=== PATIENT | female | born 1945 | race Caucasian/White ===

== ENCOUNTER 2024-01-10 05:58 | Inpatient (IN) | payer OTHER ==
[2024-01-09 09:02] VITALS: BMI 22.9
[2024-01-10] MEDS ORDERED: Vancomycin 1 GM VIAL ONE (06:23)
[2024-01-10] MEDS ORDERED: Thrombin 5000 UNITS/5 ML VIAL ONE (06:23)
[2024-01-10] MEDS ORDERED: Midazolam HCl 2 mg/2 ml Vial ONE (06:47)
[2024-01-10 06:53] LABS: Hematocrit 38.4 % (36.0-47.0); Mean Corpuscular HGB CONC 31.3 g/dL (32.0-36.0); Mean Platelet Volume 9.1 fL (7.4-10.4); Platelet Count 302 10x3/uL (130-400); RBC Distribution Width 17.2 % (11.5-14.5)
[2024-01-10] MEDS ORDERED: Sodium Chloride 0.9% 0 ML ONE (06:59)
[2024-01-10] MEDS ORDERED: CEFAZOLIN 2 GM VIAL ONE (06:59)
[2024-01-10 07:06] LABS: PTT 30.6 sec (22.9-36.1); Prothrombin Time 13.2 sec (12.0-14.7)
[2024-01-10 07:07] LABS: Anion Gap 15 mmol/L (10-20); BUN (Urea Nitrogen) 21 mg/dL (9.8-20.1); Calc. Creatinine Clearance 65 mL/min (70-130); Calcium 9.2 mg/dL (7.8-10.44); Carbon Dioxide 21 mmol/L (23-31); Chloride 108 mmol/L (98-107); Estimated GFR 73; Glucose 115 mg/dL (83-110); Sodium 140 mmol/L (136-145)
[2024-01-10] MEDS ORDERED: PROPOFOL 20 ML ONE (07:11)
[2024-01-10] MEDS ORDERED: Fentanyl 250 MCG/5 ML VIAL ONE ×2 (07:11→11:51)
[2024-01-10] MEDS ORDERED: MINERAL OIL/WHITE PETROLATUM 3.5 GM TUBE ONE (07:12)
[2024-01-10] MEDS ORDERED: Rocuronium Bromide 10 MG/ML (10ML VIAL) ONE (07:12)
[2024-01-10] MEDS ORDERED: Lidocaine 2% PF 5 ML VIAL ONE (07:12)
[2024-01-10] MEDS ORDERED: Dexamethasone 4 mg/ml Vial ONE (07:52)
[2024-01-10] MEDS ORDERED: Ondansetron PF 4 MG/2 ML Vial ONE (07:56)
[2024-01-10] MEDS ORDERED: Dexmedetomidine 200 MCG/2 ML VIAL ONE (07:57)
[2024-01-10] MEDS ORDERED: SUGAMMADEX SODIUM 200 MG/2 ML VIAL ONE (08:11)
[2024-01-10] MEDS ORDERED: ePHEDrine Sulfate 50 MG/10 ML VIAL ONE (09:07)
[2024-01-10] MEDS ORDERED: Albumin 5% 500 ML ONE (09:55)
[2024-01-10] MEDS ORDERED: PHENYLEPHRINE-NS 100 MCG/ML 10 ML SYRINGE ONE (09:56)
[2024-01-10] MEDS ORDERED: HYDROmorphone 2 MG/ML VIAL ONE ×2 (10:23→12:21)
[2024-01-10] MEDS ORDERED: Ondansetron PF 4 MG/2 ML Vial IVP PRN (11:32)
[2024-01-10] MEDS ORDERED: diphenhydrAMINE 25 MG CAP PO PRN (11:32)
[2024-01-10] MEDS ORDERED: Milk Of Magnesia 30 ML UDCUP PO PRN (11:32)
[2024-01-10] MEDS ORDERED: Benzocaine/Menthol 1 LOZ LOZ PO PRN (11:37)
[2024-01-10] MEDS: Morphine 2 MG/ML VIAL SLOW IVP PRN (14:21)
[2024-01-10] MEDS: CEFAZOLIN 2 GM in Sodium Chloride 0.9% 100 ML IVPB SCH (15:57)
[2024-01-10] MEDS: tiZANidine HCl 4 MG TAB PO PRN (15:57)
[2024-01-10] MEDS: HYDROcodone/Acetaminophen 7.5/325 mg Tablet PO PRN (16:49)
[2024-01-10] MEDS: Sodium Chloride 0.9% 1,000 ML IV SCH (20:03)
[2024-01-10] MEDS: Acetaminophen 325 MG TAB PO PRN (20:34)
[2024-01-10] MEDS: Lorazepam 1 MG TAB PO SCH (21:23)
[2024-01-11] MEDS: Acetaminophen/Codeine 30-300mg Tablet PO PRN ×2 (00:46→08:25)
[2024-01-11] MEDS ORDERED: Polyethylene Glycol 3350 17 GM Packet PO PRN (06:32)
[2024-01-11] MEDS: Mag-Al 1200 mg/1200 mg/30 ML UDCUP PO PRN (08:20)
[2024-01-11] MEDS: BuPROPion XL 150 MG ER.TAB PO SCH (08:25)
[2024-01-11] MEDS: Docusate 100 MG CAP PO SCH (08:25)
[2024-01-11] MEDS: Diazepam 5 MG TAB PO PRN ×2 (11:17→21:14)
[2024-01-11] MEDS: Ketorolac Tromethamine 30 MG (1 mL) VIAL IVP PRN (11:17)
[2024-01-12] MEDS: traMADol HCl 50 MG TAB PO PRN (11:35)
[2024-01-13 07:09] LABS: Anion Gap 14 mmol/L (10-20); BUN (Urea Nitrogen) 15 mg/dL (9.8-20.1); Calc. Creatinine Clearance 71 mL/min (70-130); Calcium 8.5 mg/dL (7.8-10.44); Carbon Dioxide 23 mmol/L (23-31); Chloride 103 mmol/L (98-107); Estimated GFR 81; Glucose 170 mg/dL (83-110); Potassium 3.8 mmol/L (3.5-5.1); Sodium 136 mmol/L (136-145)
[2024-01-13 07:14] LABS: #Basophils Less than 0.03 10x3/uL (0.0-0.2); %Basophils 0.2 % (0.0-1.0); %Eosinophils 1.6 % (0.0-10.0); %Lymphocytes 7.7 % (21.0-51.0); %Monocytes 8.6 % (0.0-10.0); %Neutrophils 81.5 % (42.0-75.0); Hematocrit 28.8 % (36.0-47.0); Mean Corpuscular HGB CONC 31.3 g/dL (32.0-36.0); Mean Corpuscular Hemoglobin 20.1 pg (27.0-31.0); Mean Corpuscular Volume 64.4 fL (78.0-98.0); Mean Platelet Volume 9.3 fL (7.4-10.4); Platelet Count 231 10x3/uL (130-400); RBC Distribution Width 16.1 % (11.5-14.5); Red Blood Cell (RBC) Count 4.47 mill/uL (4.20-5.40)
[2024-01-13 07:42] LABS: Bilirubin Negative (Negative); Blood, Urine 3+ (Negative); Clarity Turbid (Clear); Glucose, Urine (Dipstick) Normal (Negative); Ketone, Urine Negative (Negative); Leukocyte 25 Leu/uL (Negative); Nitrite Negative (Negative); Protein, Urine (Dipstick) 100 mg/dL (Neg-Trace); Specific Gravity, Urine 1.024 (1.002-1.036); Squamous Epithelial 0-3 HPF (0-3); Urobilinogen Normal mg/dL (Less than 2); pH, Urine 5.5 (5.0-9.0)
[2024-01-13 07:43] LABS: Bacteria/HPF 1+ HPF (None Seen)
[2024-01-13 08:08] LABS: Lymphocytes 8 % (21-51); Microcytosis SLIGHT = 6-15 cells HPF (0-5); Monocytes 1 % (0-10); Neutrophil 91 % (42-75); Ovalocytes SLIGHT = 2-5 cells HPF (0-1); Platelet Adequacy Comment Platelets Normal; Polychromasia SLIGHT = 2-3 cells HPF (0-2); Tear Drops SLIGHT = 2-5 cells HPF (0-1)
[2024-01-13] MEDS: Nitrofurantoin Monohyd/M-Cryst 100 MG CAP PO SCH (20:36)
[2024-01-14] MEDS: Diazepam 5 MG TAB PO SCH (08:55)
[2024-01-14] MEDS: Ketorolac Tromethamine 30 MG (1 mL) VIAL IVP SCH (14:27)
[2024-01-14 16:09] VITALS: BP 121/62; TEMP 98.5
== END 2024-01-14 16:20 | DRG 516 ==
LOC: SDC 05:58 → SURG A 14:05 → OBSVTOIN 01-11 06:28
PROVIDERS: ADMIT Surgery; ATTEND Surgery
PROC: 01NB0ZZ Release Lumbar Nerve, Open Approach (ICD-10-PCS; principal; 2024-01-10)
PROC: 01NR0ZZ Release Sacral Nerve, Open Approach (ICD-10-PCS; 2024-01-10)
DX: M48.062 Spinal stenosis, lumbar region with neurogenic claudication (principal); N39.0 Urinary tract infection, site not specified; Z87.891 Personal history of nicotine dependence; J44.9 Chronic obstructive pulmonary disease, unspecified; F32.A Depression, unspecified; M19.90 Unspecified osteoarthritis, unspecified site; Z91.09 Other allergy status, other than to drugs and biological substances; M62.830 Muscle spasm of back; F41.9 Anxiety disorder, unspecified
CPT/HCPCS: 36415; 80048; 81001; 85025; 85027; 85610; 85730; 87086; 93005; 93010; 93970; A4314; J1100; J1885; J2250; J2272; J2405; J2704; J3010; J3370; J7030; P9045